=== PATIENT | female | born 1985 | race American Indian/Alaskan Native ===

== ENCOUNTER 2017-02-28 17:56 | Emergency (ER) | payer SELFPAY ==
[2017-02-28 18:12] VITALS: BP 151/101
[2017-02-28 18:48] LABS: Bilirubin,Urine NEG (Negative); Blood,Urine NEG (Negative); Ketones,Urine NEG (Negative); Leukocyte Esterase,Urine NEG (Negative); Nitrite,Urine NEG (Negative); Protein,Urine <15 mg/dL mg/dL (Negative); RBC,Urine < 1.0 /HPF (0.0-6.0); Urobilinogen,Urine < 2.0 mg/dL (<2.0); WBC,Urine < 1.0 /HPF (0.0-6.0)
[2017-02-28 20:00] LABS: Basophils % (Auto) 0.5 % (0.0-1.8); Eosinophils % (Auto) 2.6 % (0.0-4.3); Hematocrit 38.6 % (30.3-42.9); Hemoglobin 12.7 gm/dl (10.1-14.3); Mean Corpuscular HGB Conc 33 % (30-34); Mean Corpuscular Hemoglobin 30 pg (28-32); Mean Corpuscular Volume 90 fl (79-97); Platelet Count 278 K/mm3 (140-440); Red Blood Count 4.29 M/mm3 (3.65-5.03); Red Cell Distribution Width 14.8 % (13.2-15.2); White Blood Count 9.7 K/mm3 (4.5-11.0)
[2017-02-28 20:11] LABS: INR 0.98 (0.87-1.13)
[2017-02-28 20:12] LABS: Partial Thromboplastin Time 32.3 Sec. (24.2-36.6)
[2017-02-28 20:14] LABS: Anion Gap 18 mmol/L; BUN/Creatinine Ratio 11.25; Blood Urea Nitrogen 9 mg/dL (7-17); Calcium 9.8 mg/dL (8.4-10.2); Carbon Dioxide 27 mmol/L (22-30); Chloride 98.9 mmol/L (98-107); Glucose 81 mg/dL (65-100); Potassium 3.8 mmol/L (3.6-5.0); Sodium 140 mmol/L (137-145)
--- NOTE | 2017-03-02 10:56 | ED Elopement Review ---
ED Pt Elopement review - Results review Lab results: Laboratory Tests 02/28/17 02/28/17 02/28/17 18:04 18:25 18:57 WBC 9.7 RBC 4.29 Hgb 12.7 Hct 38.6 MCV 90 MCH 30 MCHC 33 RDW 14.8 Plt Count 278 Lymph % (Auto) 28.7 [place] % (Auto) 7.3 Eos % (Auto) 2.6 Baso % (Auto) 0.5 Lymph # 2.8 Mcnairy # 0.7 Eos # 0.3 Baso # 0.0 Seg Neutrophils % 60.9 Seg Neutrophils # 5.9 PT INR APTT Sodium Potassium Chloride Carbon Dioxide Anion Gap BUN Creatinine Estimated GFR BUN/Creatinine Ratio Glucose POC Glucose 98 Calcium Troponin T HCG, Qual Urine Color Colorless Urine Turbidity Clear Urine pH 7.0 Ur Specific Pyrites 1.001 L Urine Protein <15 mg/dl Urine Glucose (UA) Neg Urine Ketones Neg Urine Blood Neg Urine Nitrite Neg Urine Bilirubin Neg Urine Urobilinogen < 2.0 Ur Leukocyte Esterase Neg Urine WBC (Auto) < 1.0 Urine RBC (Auto) < 1.0 U Epithel Cells (Auto) < 1.0 02/28/17 02/28/17 02/28/17 18:57 18:57 18:57 WBC RBC Hgb Hct MCV MCH MCHC RDW Plt Count Lymph % (Auto) Mcnairy % (Auto) Eos % (Auto) Baso % (Auto) Lymph # Mcnairy # Eos # Baso # Seg Neutrophils % Seg Neutrophils # PT 12.9 INR 0.98 APTT 32.3 Sodium 140 Potassium 3.8 Chloride 98.9 Carbon Dioxide 27 Anion Gap 18 BUN 9 Creatinine 0.8 Estimated GFR > 60 BUN/Creatinine Ratio 11.25 Glucose 81 POC Glucose Calcium 9.8 Troponin T < 0.010 HCG, Qual Negative Urine Color Urine Turbidity Urine pH Ur Specific Pyrites Urine Protein Urine Glucose (UA) Urine Ketones Urine Blood Urine Nitrite Urine Bilirubin Urine Urobilinogen Ur Leukocyte Esterase Urine WBC (Auto) Urine RBC (Auto) U Epithel Cells (Auto) - Call Back decision Pt Call Back Decision: No action required
== END 2017-02-28 20:40 | disposition left against medical advice (07) ==
LOC: ED 17:56
DX: R07.9 Chest pain, unspecified (principal); Z53.21 Procedure and treatment not carried out due to patient leaving prior to being seen by health care provider
CPT/HCPCS: 36415; 80048; 81001; 82962; 84484; 84703; 85025; 85610; 85730; 93005; 93010